=== PATIENT | female | born 1940 | race Caucasian/White ===

== ENCOUNTER 2019-09-27 11:20 | Emergency (ER) | payer OTHER ==
[~2019-09-27] VITALS: Ht 154.9 cm; Wt 56.7 kg
[~2019-09-27 11:20] MED LIST: CELEBREX; OMEPRAZOLE; PROLIA60 MG/1 ML SQ
[2019-09-27] MEDS ORDERED: FOSAMAX 70 MG T70 MG PO (11:28)
[2019-09-27 12:40] VITALS: BP 146/90
== END 2019-09-27 12:41 | disposition home or self-care (01) ==
LOC: M.ERS 11:20
DX: T18.0XXA Foreign body in mouth, initial encounter (principal); Z90.89 Acquired absence of other organs; Z88.8 Allergy status to other drugs, medicaments and biological substances; X58.XXXA Exposure to other specified factors, initial encounter; Y93.89 Activity, other specified; Y92.89 Other specified places as the place of occurrence of the external cause; Y99.8 Other external cause status